=== PATIENT | female | born 1985 | race Caucasian/White ===

== ENCOUNTER 2017-02-01 07:12 | Day surgery (SDC) | payer MEDICARE, MEDICAID ==
[2017-01-31 13:35] VITALS: BMI 54.2
--- NOTE | 2017-02-01 01:37 | HP ---
DATE OF ADMISSION: 02/01/2017 SHORT STAY HISTORY AND PHYSICAL HISTORY OF PRESENT ILLNESS: This is a 31-year-old female referred to me because of chroni c dyspepsia. The patient has chronic acid reflux over the years. The patient has been taking Nexiu m. The medicine was changed to Protonix recently because of the patient's symptoms. She complains of heartburn and has a sour taste in the mouth. She also complains of pain over the retrosternal ar ea off and on. She has no dysphagia or odynophagia. The patient gives a history of lower abdominal pain, nausea, vomiting, and intermittent diarrhea. There is no history of any fever, night sweats, or any symptoms. The patient comes for an EGD because of persistent acid reflux and dyspeptic symp toms. MEDICAL ILLNESSES: 1. Obesity. 2. Chronic acid reflux. 3. Irritable bowel syndrome. 4. Depression. 5. Allergic rhinitis. 6. Diabetes mellitus. 7. Lymphedema. 8. Hypertension. 9. LEEP procedure. ALLERGIES: CODEINE and SULFA. PHYSICAL EXAMINATION: GENERAL: The patient is obese, appears comfortable. VITAL SIGNS: Pulse is 70, blood pressure 130/70. HEENT: Conjunctivae clear. CARDIOVASCULAR SYSTEM: First and second heart sounds normal. LUNGS: Clear to auscultation. ABDOMEN: Soft to palpate. Abdomen is minimally tender over the epigastric area. No rebound or gua rding. EXTREMITIES: Reveal bilateral lymphedema. ADMITTING DIAGNOSES: Abdominal pain, chronic dyspepsia, chronic acid reflux. PLAN: EGD.
[2017-02-01] MEDS ORDERED: Lidocaine 1% PF 5 ML VIAL ONE (09:24)
--- NOTE | 2017-02-01 14:33 | OP ---
DATE OF PROCEDURE: 02/01/2017 OPERATIVE PROCEDURE: Esophagogastroduodenoscopy with biopsy. PREOPERATIVE DIAGNOSIS: A 31-year-old female with chronic dyspepsia, chronic acid reflux, abdominal pain. The patient is undergoing esophagogastroduodenoscopy. POSTOPERATIVE DIAGNOSES: 1. Normal esophageal mucosa, no erosions or any ulceration seen. 2. Occasional antral erosions. Otherwise, normal exam. PROCEDURE NOTE: The patient was placed on her left lateral position and the throat was anesthetized with . The patient was given sedation by Anesthesia Department. A Pentax video gastroscope u nder direct vision was passed down the oropharynx, past the GE junction into the stomach. Although, the patient complains of persistent acid reflux, an endoscopy, the esophageal mucosa actually appea rs normal. No erosions seen. No ulcerations seen. In the GE junction, no pathology seen. The fun dus and cardia, no pathology seen. The gastric body, no lesions seen. The gastric antrum shows an occasional erosion and mucosal edema. Biopsies were obtained from the area. The duodenal bulb and descending duodenum, no pathology seen. The stomach was decompressed and scope removed. DISCHARGE RECOMMENDATIONS: 1. Weight loss stressed to the patient. 2. Dietary and lifestyle modifications for the patient. 3. Continue Protonix as before. 4. Come back to clinic in 2 weeks.
== END 2017-02-01 10:39 | disposition home or self-care (01) ==
LOC: SDC 07:12
PROVIDERS: ATTEND Internal Medicine Gastroenterology
PROC: 0DB68ZX Excision of Stomach, Via Natural or Artificial Opening Endoscopic, Diagnostic (ICD-10-PCS; principal; 2017-02-01)
DX: K31.9 Disease of stomach and duodenum, unspecified (principal); K21.9 Gastro-esophageal reflux disease without esophagitis; F32.9 Major depressive disorder, single episode, unspecified; E11.9 Type 2 diabetes mellitus without complications; I10 Essential (primary) hypertension; J30.9 Allergic rhinitis, unspecified; E66.9 Obesity, unspecified; Z68.43 Body mass index [BMI] 50.0-59.9, adult; Z88.5 Allergy status to narcotic agent; Z88.2 Allergy status to sulfonamides; Z88.8 Allergy status to other drugs, medicaments and biological substances; Z79.84 Long term (current) use of oral hypoglycemic drugs; Z79.899 Other long term (current) drug therapy
CPT/HCPCS: 88305; 88312; J2001

== ENCOUNTER 2017-02-01 15:31 | Inpatient (IN) | payer MEDICARE, MEDICAID ==
[2017-02-01] MEDS ORDERED: ISOVUE-370 76%-LOCM 1 ML ONE (16:04)
[2017-02-01] MEDS ORDERED: Ondansetron HCl/PF 4 MG/2 ML Vial ONE (16:11)
--- NOTE | 2017-02-01 16:22 | RAD ---
AP VIEW OF THE CHEST: 02/01/17 INDICATION: Difficulty breathing. COMPARISON: Prior exam dated 09/02/16. FINDINGS: No air space consolidation, pleural effusion or pneumothorax is evident. No acute osseous abnormality is evident. IMPRESSION: No acute cardiopulmonary abnormality. POS: [facility]
[2017-02-01 16:23] LABS: #Eosinphils 0.1 thou/uL (0.0-0.7); #Lymphocytes 1.6 thou/uL (1.20-3.40); #Neutrophils 15.2 thou/uL (1.40-6.50); %Eosinophils 0.3 % (0.0-10.0); %Lymphocytes 8.7 % (21.0-51.0); %Monocytes 5.7 % (0.0-10.0); Hematocrit 43.9 % (36.0-47.0); Mean Platelet Volume 7.1 fL (7.4-10.4); Red Blood Cell (RBC) Count 5.09 mill/uL (4.20-5.40); White Blood Cell (WBC) Count 17.9 thou/uL (4.8-10.8)
[2017-02-01 16:32] LABS: Bilirubin Negative (Negative); Blood, Urine Moderate (Negative); Glucose, Urine (Dipstick) Negative (Negative); Ketone, Urine Negative (Negative); Nitrite Negative (Negative); Protein, Urine (Dipstick) Negative (Neg-Trace)
[2017-02-01 16:35] LABS: Bacteria/HPF None Seen HPF (None Seen); Hyaline Casts/LPF 0-3 HYALINE CAST LPF (0-3 Hyaline); Squamous Epithelial 0-3 HPF (0-3)
[2017-02-01 16:44] LABS: Lactic Acid - Sepsis 3.1 mmol/L (0.5-2.2)
[2017-02-01 16:49] LABS: ALT (SGPT) 12 U/L (8-55); AST (SGOT) 10 U/L (5-34); Alkaline Phosphatase 70 U/L (40-150); Anion Gap 12 mmol/L (10-20); BUN (Urea Nitrogen) 16 mg/dL (7.0-18.7); Bilirubin, Total 0.3 mg/dL (0.2-1.2); Calc. Creatinine Clearance 0 mL/min (70-130); Carbon Dioxide 21 mmol/L (22-29); Chloride 109 mmol/L (98-107); Estimated GFR-MDRD 81; Globulin 3.7 g/dL (2.4-3.5); Protein, Total 7.6 g/dL (6.0-8.3)
[2017-02-01] MEDS ORDERED: Piperacillin/Tazobactam 3.375 GM VIAL ONE (17:43)
[2017-02-01] MEDS ORDERED: Morphine Sulfate 2 MG/ML SYRINGE ONE (19:32)
--- NOTE | 2017-02-01 20:28 | CT ---
CT ABDOMEN WITH IV CONTRAST CT PELVIS WITH IV CONTRAST 02/01/17 HISTORY: Patient complains of mid sternal left sided chest pain as well as abdominal pain. Pain radiates to t he back. Patient states the pain is constant. FINDINGS: There are patchy ground glass densities seen in the left lower lobe and in the lingula which may be related to infectious or inflammatory process. Right lung base is clear. The liver, spleen, pancreas, bilateral adrenal glands, kidneys, abdominal aorta, urinary bladder, ut erus and adnexal structures have a normal CT appearance. The appendix is visualized and normal in caliber. Lucency structure in the vagina is probably relate d to female hygiene products, but clinical correlation is recommended. IMPRESSION: 1. Nodular and slight patchy ground glass densities at the left lung base which may be related to infectious or inflammatory process. 2. No acute findings are seen in the abdomen or pelvis. POS: [facility]
--- NOTE | 2017-02-01 20:38 | CT ---
CT ANGIOGRAM THORAX WITH IV CONTRAST AND 3D RECONSTRUCTIONS 02/01/17 HISTORY: Elevated D-dimer. Patient complains of difficulty breathing. Scope was performed earlier today. Rosemarie ent also complains of left sided chest pain and abdominal pain with radiation of pain to the back. P ain is constant. FINDINGS: There is suboptimal timing of the contrast bolus and the pulmonary arteries are unopacified on this exam. The thoracic aorta is normal in caliber without evidence of an aortic dissection. There is no lymphadenopathy seen. There are several scattered patchy ground glass densities seen throughout the left lung, both in the left upper lobe as well as left lower lobe which may be related to infectious or inflammatory proce ss. Followup to resolution is suggested. The right lung is clear. The visualized upper abdomen has a normal CT appearance. IMPRESSION: 1. Several patchy and ground glass densities seen throughout the left upper and left lower lobe s worrisome for infectious or inflammatory process. Followup to resolution is recommended. 2. Suboptimal timing of the contrast bolus, and the pulmonary arteries are unopacified. Pulmona ry embolus cannot be evaluated on this exam. POS: [facility]
[2017-02-01] MEDS ORDERED: Ondansetron ODT 4 MG TAB PO PRN (20:56)
[2017-02-01] MEDS ORDERED: Acetaminophen 325 MG TAB PO PRN (20:56)
[2017-02-01] MEDS ORDERED: Bisacodyl 5 MG TAB PO PRN (20:56)
[2017-02-01 21:35] VITALS: BMI 54.5
--- NOTE | 2017-02-01 21:42 | PDOC.EVN ---
Event Note - Event Note Event Note: Attending H&P I personally evaluated the patient and discussed the management with Dr. Buckner. I have reviewed her H&P and it is repeated by me. I agree with the History, Examination, Assessment and Plan documented above with any addition or exceptions noted below. Ms Rapp's history and exam are consistent with aspiration pneumonia. appropriate antibiotics initiated along with her routine meds. Already her vitals are normal and she is not requiring oxygen supplementation.
[2017-02-01] MEDS: Sodium Chloride 0.9% 1,000 ML IV SCH (21:52)
[2017-02-01] MEDS: Famotidine/PF 20 mg/2ml Vial SLOW IVP SCH (21:53)
[2017-02-01] MEDS: Docusate 100 MG CAP PO SCH (21:54)
[2017-02-01] MEDS ORDERED: LIDOCAINE 5% TOP PRN (22:45)
[2017-02-01] MEDS: Piperacillin/Tazobactam 3.375 GM in Sodium Chloride 0.9% 100 ML IVPB SCH (23:45)
--- NOTE | 2017-02-02 00:13 | HP-2 ---
CODE STATUS: FULL. PRIMARY CARE PHYSICIAN: Dr. Olivo. ATTENDING: Dr. Adams. PGY-1: Dr. Buckner. CHIEF COMPLAINT: Shortness of breath. HISTORY OF PRESENT ILLNESS: A 31-year-old female presents with acute abdominal pain, shortness of breath. She had an EGD for GERD/chest pain today and the pain and shortness of breath started around 1:00 p.m. following the procedure. She states she has felt very cold and her pulse was racing. She denies sick contacts. She does note some nausea, but denies vomiting or diarrhea. She has had a little cough for the recent past couple of days, but nothing like this. In the ER, she was given vancomycin and Zosyn and bolused 2 liters. PAST MEDICAL HISTORY: Significant for diabetes mellitus type 2, conversion disorder, depression, ADHD, IBS, neuropathy, and seizure disorder. PAST SURGICAL HISTORY: Cervical biopsies. ALLERGIES: CODEINE and SULFA DRUGS. MEDICATIONS: She is on: 1. Vitamin D3 4000 units. 2. Metformin 500 mg b.i.d. 3. Oxybutynin 5 mg b.i.d. 4. Topamax 100 mg b.i.d. 5. Gabapentin 600 mg t.i.d. 6. Cyanocobalamin 1 per week. 7. Hydroxyzine 25 mg q.6 hours p.r.n. for itching. 8. Aspirin 81 mg once a day. 9. Metoclopramide 10 mg. 10. Trintellix 10 mg. 11. Trazodone 100 mg. 12. Abilify 10 mg. 13. Meclizine 25 mg b.i.d. FAMILY HISTORY: Significant for diabetes mellitus type 2, colon cancer and hypertension. SOCIAL HISTORY: She denies tobacco, alcohol, or drug use. REVIEW OF SYSTEMS: General: She does admit to chills. She denies fevers, weight changes, night sweats, or fatigue. Eyes: Denies any vision changes or eye pain. ENT: Denies any nasal congestion, rhinorrhea, or sore throat. Respiratory: She admits to cough and shortness of breath. She denies congestion or exercise intolerance. Cardiovascular: Denies any chest pain, palpitations, edema. Gastrointestinal: She admits to nausea, no vomiting. Denies any diarrhea, constipation. She does admit to abdominal pain. No GI bleeding. Genitourinary: She denies any incontinence, dysuria. She is currently on her menstrual cycle. Skin: Denies any rashes, lesions, jaundice, or itching. Musculoskeletal: She has no pain, tenderness, stiffness, swelling in any joints. Neurologic: Denies any weakness, numbness, syncope or seizures. Psychiatric: She denies anxiety, but she does admit to a depression history. PHYSICAL EXAMINATION: VITAL SIGNS: Blood pressure 112/55, pulse is 112, respirations are 24, temperature max 98.4, pulse ox 96% on room air. Current weight 150 kilograms. GENERAL: She is alert and oriented x4. She is obese. She is appropriate and interactive. EYES: PERRLA. Conjunctivae within normal limits. ENT: Tympanic membranes are pearly julien without bulging or erythema. Nasal mucosa and oropharynx are within normal limits. NECK: Supple, without lymphadenopathy, without thyromegaly, without bruit. CARDIOVASCULAR: She had a tachycardic rhythm. No murmurs. Radial and pedal pulses are equal bilaterally. RESPIRATORY: She had normal effort, no retractions. LUNGS: Clear to auscultation bilaterally. SKIN: Warm and dry. ABDOMEN: Soft, tender to palpation and bowel sounds are present x4. No mass or distention. EXTREMITIES: No clubbing, cyanosis and she did have trace edema down in her lower extremities. MUSCULOSKELETAL: Structure, tone, muscle strength and range of motion within normal limits. NEUROLOGIC: No focal neurologic deficits. Cranial nerves II through XII were grossly intact. GCS 15. PSYCHIATRIC: Appropriate. LABORATORY DATA AND IMAGING: White blood cell count 17.9, platelet count 332, hemoglobin 14.3, hematocrit 43.9. Sodium 138, potassium 3.8, chloride 109, bicarbonate 21, BUN 16, creatinine 0.82, glucose 134, calcium 9.0, total protein 7.6, albumin 3.9, total bilirubin 0.3, AST 10, ALT 12, alkaline phosphatase 70. Beta hCG was negative. D-dimer 0.45, lactate was 3.1. UA showed a moderate amount of blood, small leukocyte esterase, 11-20 RBCs, 4-6 white blood cells, no bacteria, but she is on her menstrual cycle. A chest x- ray was negative. She did have a CT of her chest that showed several patchy ground-glass densities throughout her left upper and lower lobes, worrisome for infectious or inflammatory process and the pulmonary embolus cannot be evaluated by this exam because of suboptimal timing of the contrast bolus and the pulmonary arteries are unopacified. ASSESSMENT AND PLAN: A 31-year-old female with past medical history of diabetes mellitus type 2, conversion disorder, depression, seizure disorder, neuropathy, presents with: 1. Aspiration pneumonia. We are going to give her IV fluids. We are going to repeat her lactate levels to make sure that they are trending in the right direction. Continue Zosyn for now. Get CBC, CMP and cultures are pending. 2. Diabetes mellitus. We will restart her metformin and Accu-Cheks. 3. Conversion disorder. Continue home medications. 4. Seizure disorder. Continue home medications. 5. Neuropathy. Continue home medications. 6. Depression. Continue home medications. DISPOSITION AND LENGTH OF HOSPITAL STAY: Medical and 2 midnights. Symptomatic medications will be provided. History and physical exam as well as management discussed with Dr. Adams. [facility]
[2017-02-02] MEDS: Sodium Chloride 0.9% 1,000 ML IV SCH ×2 (04:25→05:29)
[2017-02-02] MEDS: Piperacillin/Tazobactam 3.375 GM in Sodium Chloride 0.9% 100 ML IVPB SCH ×4 (05:25→23:48)
[2017-02-02 05:36] LABS: #Eosinphils 0.2 thou/uL (0.0-0.7); #Lymphocytes 3.4 thou/uL (1.20-3.40); #Monocytes 1.3 thou/uL (0.11-0.59); #Neutrophils 12.3 thou/uL (1.40-6.50); %Basophils 0.3 % (0.0-1.0); %Lymphocytes 19.8 % (21.0-51.0); %Monocytes 7.6 % (0.0-10.0); Hematocrit 39.4 % (36.0-47.0); Mean Platelet Volume 7.7 fL (7.4-10.4); Red Blood Cell (RBC) Count 4.48 mill/uL (4.20-5.40); White Blood Cell (WBC) Count 17.3 thou/uL (4.8-10.8)
[2017-02-02 05:53] LABS: Anion Gap 12 mmol/L (10-20); BUN (Urea Nitrogen) 12 mg/dL (7.0-18.7); Calc. Creatinine Clearance 253 mL/min (70-130); Carbon Dioxide 18 mmol/L (22-29); Chloride 113 mmol/L (98-107); Estimated GFR-MDRD 90
--- NOTE | 2017-02-02 08:36 | RAD ---
SINGLE VIEW OF THE CHEST: COMPARISON: 02/01/2017 HISTORY: Pneumonia. FINDINGS: Single view of the chest shows a normal sized cardiomediastinal silhouette. There is no evidence of consolidation, mass, or pleural effusion. The bones are unremarkable. IMPRESSION: No evidence of acute cardiopulmonary disease. POS: [facility]
[2017-02-02] MEDS: Fish Oil 1,000 MG CAP PO SCH (08:57)
[2017-02-02] MEDS: Docusate 100 MG CAP PO SCH ×2 (08:57→20:19)
[2017-02-02] MEDS: Aripiprazole 10 MG TAB PO SCH (08:58)
[2017-02-02] MEDS: Gabapentin 300 MG CAP PO SCH ×2 (08:58→20:19)
[2017-02-02] MEDS: Aspirin 81 mg Enteric Coated Tablet PO SCH (08:58)
[2017-02-02] MEDS: Famotidine/PF 20 mg/2ml Vial SLOW IVP SCH ×2 (08:58→20:19)
[2017-02-02] MEDS: Topiramate 100 MG TAB PO SCH ×2 (08:58→20:19)
[2017-02-02] MEDS ORDERED: FLU VACC QS2017-18 36 mo. & older 0.5 ML SYRINGE IM ONE (09:00)
[2017-02-02] MEDS ORDERED: TOPIRAMATE 25 MG PO SCH (09:00)
[2017-02-02] MEDS ORDERED: Vortioxetine Hydrobromide [Trintellix] 20 MG PO SCH (09:00)
--- NOTE | 2017-02-02 09:17 | PDOC.FM ---
- Subjective Subjective: MILO overnight, VSS, afebrile. Pt endorses improved breathing this AM. Tolerating PO but states throat is sore w/ swallowing. No other complaints this AM. Resting comfortably in bed. - Objective MAR Reviewed: Yes Vital Signs & Weight: Vital Signs (12 hours) Temp Pulse Resp BP Pulse Ox 02/02/17 08:00 98.2 F 86 20 103/67 96 02/02/17 04:00 97.8 F 99 18 107/75 98 02/02/17 01:14 98.2 F 83 18 100/63 95 02/01/17 21:17 98.4 F 96 18 96 Weight Weight 148.58 kg I&O: 02/01/17 02/02/17 02/03/17 06:59 06:59 06:59 Intake Total 2320 Balance 2320 Result Diagrams: 02/02/17 04:14 02/02/17 04:14 <Toribio Hamlin - Last Filed: 02/02/17 09:15> - Objective Vital Signs & Weight: Vital Signs (12 hours) Temp Pulse Resp BP Pulse Ox 02/02/17 08:00 98.2 F 86 20 103/67 96 02/02/17 04:00 97.8 F 99 18 107/75 98 02/02/17 01:14 98.2 F 83 18 100/63 95 Weight Weight 148.58 kg I&O: 02/01/17 02/02/17 02/03/17 06:59 06:59 06:59 Intake Total 2320 Balance 2320 Result Diagrams: 02/02/17 04:14 02/02/17 04:14 <Jenae Agustin - Last Filed: 02/02/17 10:43> Phys Exam - Physical Examination Constitutional: NAD HEENT: PERRLA Mildly hoarse voice Respiratory: no wheezing, clear to auscultation bilateral Cardiovascular: RRR Gastrointestinal: soft, non-tender, no distention Musculoskeletal: no edema, pulses present Neurological: moves all 4 limbs Psychiatric: A&O x 3 Skin: cap refill <2 seconds <Toribio Hamlin - Last Filed: 02/02/17 09:15> Dx/Plan (1) Aspiration pneumonia Code(s): J69.0 - PNEUMONITIS DUE TO INHALATION OF FOOD AND VOMIT Status: Suspected Qualifiers: Laterality: left Plan: Aspiration PNA vs chemical pneumonitis Timeframe is likely too quick for aspiration PNA from EGD performed yesterday AM just prior to sxs onset w/ coughing and SOB Likely opacification seen on CT scan from pneumonitis However, cannot r/o prior infection w/ pt endorsing reflux sxs which where present prior to EGD 2/2 concern for aspiration and pt meeting SIRS criteria w/ continue w/ IV Zosyn and will add on IV Vanc for broad spectum coverage until cultures grow out negative Order for strict I/O's placed Pt likely w/ adeuate IVF resucitation 2/2 decreased lactate and resolved tachycardia Will decrease IVF today and wean off as pt proves she can tolerate PO (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 w/ metformin Not on insulin no need for accuchecks or SSI at this time Appears to be stable (4) Depression Code(s): F32.9 - MAJOR DEPRESSIVE DISORDER, SINGLE EPISODE, UNSPECIFIED Status : Chronic Qualifiers: Psychotic features: with psychotic features Plan: Cont. w/ home meds <Toribio Hamlin - Last Filed: 02/02/17 09:15> Attending Addendum - Attending Addendum I personally evaluated the patient and discussed the management with Dr. Hamlin I agree with the History, Examination, Assessment and Plan documented above with any addition or exceptions noted below- Patient c/o sore thoat and pain with swallowing. Still with mild cough with sputum. Afebrile VSS A/P: 1) Possible aspiration pneumonia versus pneumonitis- continue abx for now. Consider addition of nebs. Monitor WBC count. <Jenae Agustin - Last Filed: 02/02/17 10:43>
[2017-02-02] MEDS ORDERED: Sodium Chloride 0.9% 1,000 ML IV SCH (09:26)
[2017-02-02] MEDS ORDERED: Chloraseptic Spray 180 ml Bottle PO PRN (10:23)
[2017-02-02] MEDS ORDERED: LIDOCAINE 5% TOP SCH (10:30)
[2017-02-02] MEDS ORDERED: PATIENT'S HOME MEDICATION PO SCH (10:45)
[2017-02-02] MEDS ORDERED: traZODone HCl 50 MG TAB PO SCH (21:00)
[2017-02-02] MEDS ORDERED: hydrOXYzine Pamoate 25 mg Capsule PO SCH (21:00)
[2017-02-03] MEDS: Piperacillin/Tazobactam 3.375 GM in Sodium Chloride 0.9% 100 ML IVPB SCH (06:08)
[2017-02-03 07:37] LABS: #Basophils 0.1 thou/uL (0.0-0.2); #Eosinphils 0.3 thou/uL (0.0-0.7); #Lymphocytes 2.3 thou/uL (1.20-3.40); #Monocytes 0.7 thou/uL (0.11-0.59); #Neutrophils 5.1 thou/uL (1.40-6.50); %Basophils 0.7 % (0.0-1.0); %Eosinophils 3.6 % (0.0-10.0); %Lymphocytes 27.4 % (21.0-51.0); %Monocytes 8.3 % (0.0-10.0); Hematocrit 37.3 % (36.0-47.0); Mean Platelet Volume 7.3 fL (7.4-10.4); White Blood Cell (WBC) Count 8.5 thou/uL (4.8-10.8)
[2017-02-03 07:56] LABS: Anion Gap 11 mmol/L (10-20); BUN (Urea Nitrogen) 9 mg/dL (7.0-18.7); Calc. Creatinine Clearance 263 mL/min (70-130); Calcium 8.3 mg/dL (7.8-10.44); Carbon Dioxide 18 mmol/L (22-29); Chloride 113 mmol/L (98-107); Estimated GFR-MDRD Greater than 90
[2017-02-03 08:34] VITALS: BP 120/71; TEMP 98.2
[2017-02-03] MEDS ORDERED: PATIENT'S HOME MEDICATION PO SCH (09:00)
[2017-02-03] MEDS: Aripiprazole 10 MG TAB PO SCH (09:07)
[2017-02-03] MEDS: Aspirin 81 mg Enteric Coated Tablet PO SCH (09:08)
[2017-02-03] MEDS: Docusate 100 MG CAP PO SCH (09:09)
[2017-02-03] MEDS: Topiramate 100 MG TAB PO SCH (09:09)
[2017-02-03] MEDS: Fish Oil 1,000 MG CAP PO SCH (09:10)
[2017-02-03] MEDS: Gabapentin 300 MG CAP PO SCH (09:10)
[2017-02-03] MEDS: Famotidine/PF 20 mg/2ml Vial SLOW IVP SCH (09:12)
--- NOTE | 2017-02-03 10:08 | PDOC.FM ---
- Subjective Subjective: MILO overnight, improved breathing this AM per patient. VSS, afebrile. No new complaints. Asking when she can go home. - Objective MAR Reviewed: Yes Vital Signs & Weight: Vital Signs (12 hours) Temp Pulse Resp BP Pulse Ox 02/03/17 08:00 98.2 F 90 20 120/71 98 02/03/17 01:00 98.1 F 69 16 95/62 97 Weight Weight 148.58 kg I&O: 02/02/17 02/03/17 02/04/17 06:59 06:59 06:59 Intake Total 2320 1180 Balance 2320 1180 Result Diagrams: 02/03/17 07:28 02/03/17 07:28 <Toribio Hamlin - Last Filed: 02/03/17 10:05> - Objective Vital Signs & Weight: Vital Signs (12 hours) Temp Pulse Resp BP Pulse Ox 02/03/17 08:00 98.2 F 90 20 120/71 98 02/03/17 01:00 98.1 F 69 16 95/62 97 Weight Weight 148.58 kg I&O: 02/02/17 02/03/17 02/04/17 06:59 06:59 06:59 Intake Total 2320 1180 Balance 2320 1180 Result Diagrams: 02/03/17 07:28 02/03/17 07:28 <Jenae Agustin - Last Filed: 02/03/17 10:14> Phys Exam - Physical Examination Constitutional: NAD HEENT: moist MMs Neck: no nodes Respiratory: no wheezing, clear to auscultation bilateral Cardiovascular: RRR, no significant murmur Gastrointestinal: soft, non-tender mild TTP over left chest Neurological: moves all 4 limbs Psychiatric: A&O x 3 <Toribio Hamlin - Last Filed: 02/03/17 10:05> Dx/Plan (1) Aspiration pneumonia Code(s): J69.0 - PNEUMONITIS DUE TO INHALATION OF FOOD AND VOMIT Status: Suspected Qualifiers: Laterality: left Plan: Aspiration PNA vs chemical pneumonitis Timeframe is likely too quick for aspiration PNA s/p EGD unlikely w/ prior PNA w/o consolidation seen on repeat CXR yesterday s/p IVF resus 2/2 concern for aspiration and pt meeting SIRS criteria w/ continue w/ full 7 day of abx upon d/c w/ transition to PO augmentin WBC down today and afebrile with resolved sxs Will plan for discharge (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 w/ metformin Not on insulin no need for accuchecks or SSI at this time Appears to be stable (4) Depression Code(s): F32.9 - MAJOR DEPRESSIVE DISORDER, SINGLE EPISODE, UNSPECIFIED Status : Chronic Qualifiers: Psychotic features: with psychotic features Plan: Cont. w/ home meds <Toribio Hamlin - Last Filed: 02/03/17 10:05> Attending Addendum - Attending Addendum I personally evaluated the patient and discussed the management with Dr. Hamlin I agree with the History, Examination, Assessment and Plan documented above with any addition or exceptions noted below- Patient feeling better; denies any SOB. Tolerating diet. Afebrile VSS. A/P: Aspiration pneumonitis- improved; plan to d/c home today on oral abx, 2) Chest pain- reproducible; acetamenophen as needed, 3) DM- stable <Jenae Agustin - Last Filed: 02/03/17 10:14>
--- NOTE | 2017-02-03 13:54 | DIS-2 ---
DATE OF ADMISSION: 02/01/2017 DATE OF DISCHARGE: 02/03/2017 ADMITTING ATTENDING: Dr. Chad Adams. DISCHARGE ATTENDING: Dr. Jenea Agustin. RESIDENT: Toribio Hamlin MD CONSULTATIONS: None. PROCEDURES: None. PRIMARY DIAGNOSES: 1. Systemic inflammatory response syndrome secondary to aspiration pneumonitis. 2. Lactic acidosis. SECONDARY DIAGNOSES: 1. Type 2 diabetes mellitus. 2. Conversion disorder. 3. Pseudoseizures. 4. Depression. 5. Neuropathy. DISCHARGE MEDICATIONS: 1. Augmentin 1 tab PO BID x 7 days 2. Vitamin D3 4,000 units PO q day 3. Aspirin 81 mg PO Daily 4. Trazadone 100 mg PO HS 5. Abilify 10 mg PO Daily 6. Protonix 40 mg PO Daily 7. [place] 3 1,000 mg Softgel 1 cap PO Daily 8. Metformin HCl 500 mg PO BID 9. Neurontin 300 mg PO BID 10. Trintellix 20 mg PO Daily 11. Hydroxyzine 25 mg PO HS 12. Lidocaine 5% ointment 1 drop Top PRN LE pain DISCONTINUED MEDICATIONS: 1. None HISTORY OF PRESENT ILLNESS: The patient is a 31-year-old female, who presented to the ER for evaluation of shortness of breath and chest pain, status post EGD earlier that morning with Dr. Peña secondary to concerns for possible perforation. Reportedly, patient with chills during this time and subjective fevers at home, as well as associated nausea. Denied any vomiting or diarrhea during this time. Patient reports a productive cough; however. Denies any prior symptoms of this before EGD took place. Symptom onset approximately 1 hour after EGD. Patient was seen in the ER with a normal chest x-ray; however, with slightly elevated D-dimer, so CTA to rule out PE was taken as patient was tachycardic and hypertensive during this time with symptoms of respiratory compromise. CTA secondary to inadequate timing of contrast was then able to rule out PE; however, did see opacification of the left upper and left lower lobes of the left lung, concerning for inflammation versus infectious etiology. CT abdomen and pelvis was also obtained as patient had epigastric abdominal pain which was normal beside some opacification of left lung base. Patient initially with white count of 17.9 and lactic acid of 3.1. Patient was started on broad-spectrum antibiotics with vancomycin and Zosyn to cover for possible aspiration pneumonia secondary to EGD. She was started on IV fluid resuscitation with improvement in both her hypotension and elevated lactate, status post IV fluid resuscitation. Patient was continued on IV vancomycin and Zosyn until blood cultures and urine cultures grew out negative at 48 hours. Patient with resolution of leukocytosis and remained afebrile throughout her entire hospitalization. Patient with stable vital signs as well without any true episodes of hypotension or tachycardia. Patient was transitioned to p.o. Augmentin and discharged home with followup with her primary care provider for monitoring for resolution of symptoms. Patient likely with chemical pneumonitis with SIRS secondary to acute stress response from this. However, patient is at increased risk of superimposed bacterial infection secondary to this. Will go ahead and continue with PO antibiotics for a full of 7-day course. DISPOSITION: Stable. DISCHARGE INSTRUCTIONS: 1. Location: Home. 2. Follow up with the primary care provider in 5-7 days. 3. Activity: As tolerated. MTDD
== END 2017-02-03 11:50 | disposition home or self-care (01) | DRG 205 ==
LOC: ERS 15:31 → T4-A 19:31
PROVIDERS: ADMIT Family Medicine; ATTEND Family Medicine
DX: J95.89 Other postprocedural complications and disorders of respiratory system, not elsewhere classified (principal); J69.0 Pneumonitis due to inhalation of food and vomit; E87.2 Acidosis; E11.40 Type 2 diabetes mellitus with diabetic neuropathy, unspecified; I95.9 Hypotension, unspecified; Z68.43 Body mass index [BMI] 50.0-59.9, adult; Y73.0 Diagnostic and monitoring gastroenterology and urology devices associated with adverse incidents; K21.9 Gastro-esophageal reflux disease without esophagitis; F32.9 Major depressive disorder, single episode, unspecified; F90.9 Attention-deficit hyperactivity disorder, unspecified type; K58.9 Irritable bowel syndrome, unspecified; G40.909 Epilepsy, unspecified, not intractable, without status epilepticus; Y95 Nosocomial condition; E55.9 Vitamin D deficiency, unspecified; E66.9 Obesity, unspecified
CPT/HCPCS: 36415; 36416; 71010; 71275; 74177; 80048; 80053; 81003; 81015; 83605; 84703; 85025; 85379; 87040; 87077; 87086; 88305; 88312; 96361; 96365; 96367; 96375; A4216; J2001; J2270; J2405; J2543; J3370; J7050; Q0177; S0028